=== PATIENT | male | born 1980 | race Caucasian/White ===

== ENCOUNTER 2020-03-02 19:30 | Emergency (ER) | payer MEDICAID ==
[~2020-03-02] VITALS: Ht 160 cm; Wt 63.6 kg
[~2020-03-02 19:30] MED LIST: DIVA-112 PO; RISP1TAB27 PO
[2020-03-02] MEDS ORDERED: DOXYCYCLINE HYCLATE 100 MG TABLET PO ONE (23:00)
[2020-03-02] MEDS ORDERED: IBUPROFEN 600 MG TABLET PO ONE (23:00)
[2020-03-02] MEDS ORDERED: ACETAMINOPHEN 500 MG TABLET PO ONE (23:00)
[2020-03-02 23:10] VITALS: BP 135/88
== END 2020-03-03 | disposition home or self-care (01) ==
LOC: EMS 19:30
DX: L03.113 Cellulitis of right upper limb (principal); F31.9 Bipolar disorder, unspecified; F20.9 Schizophrenia, unspecified; Z59.0 Homelessness; Z88.0 Allergy status to penicillin
CPT/HCPCS: Z7502; Z7610

== ENCOUNTER 2021-07-08 01:36 | Emergency (ER) | payer MEDICAID ==
[~2021-07-08 01:36] MED LIST changes: -RISP1TAB27 PO; +RISP1TAB48 PO
[2021-07-08 02:06] LABS: GLUCOSE,POINT OF CARE 100 MG/DL (70-110)
[2021-07-08 02:06] LABS: BASOPHILS % (AUTO) 0.8 % (0.0-2.0); EOSINOPHILS % (AUTO) 6.6 % (1.0-6.0); HEMATOCRIT 41.6 % (41-53); HEMOGLOBIN 14.2 g/dL (13.5-17.5); LYMPHOCYTES # (AUTO) 2.4 K/uL (1.0-4.8); LYMPHOCYTES % (AUTO) 26.7 % (22.0-44.0); MEAN CORPUSCULAR HEMOGLOBIN 29.7 pg (26.0-34.0); MEAN CORPUSCULAR HGB CONC 34.2 G/dL (31.0-37.0); MEAN CORPUSCULAR VOLUME 87 fL (80-100); MONOCYTES # (AUTO) 0.8 K/uL (0.1-1.0); MONOCYTES % (AUTO) 8.6 % (2.0-9.0); NEUTROPHILS # (AUTO) 5.2 K/uL (1.8-7.7); NEUTROPHILS % (AUTO) 57.3 % (40.0-70.0); PLATELET COUNT (AUTO) 296 K/uL (150-450); RED BLOOD CELL COUNT(AUTO) 4.78 MIL/uL (4.50-5.90); RED CELL DISTRIBUTION WIDTH 13.4 % (11.5-14.5)
[2021-07-08 02:16] LABS: ANION GAP 7 mmol/L (8-16); CALCIUM, TOTAL 8.7 mg/dL (8.8-10.5); CARBON DIOXIDE 27 mmol/L (22-29); CHLORIDE 104 mmol/L (98-107); CREATININE 0.84 mg/dL (0.60-1.30); GLOMERULAR FILTR. RATE CALC > 60 mL/min (>60); GLUCOSE,RANDOM 105 mg/dL (70-110); POTASSIUM 3.4 mmol/L (3.5-5.1); SODIUM SERUM 138 mmol/L (136-145); UREA NITROGEN, BLOOD 19 mg/dL (7-18)
[2021-07-08 02:21] LABS: ALANINE AMINOTRANSFERASE 29 U/L (12-78); ALBUMIN 3.5 g/dL (3.4-5.0); ALKALINE PHOSPHATASE 66 U/L (46-116); ASPARTATE AMINOTRANSFERASE 17 U/L (15-37); BILIRUBIN,TOTAL 0.4 mg/dL (0.1-1.0); LIPASE 111 U/L (73-393); TOTAL PROTEIN, SERUM 7.4 g/dL (6.4-8.2)
== END 2021-07-08 02:53 | disposition left against medical advice (07) ==
LOC: EMS 01:37
DX: N50.89 Other specified disorders of the male genital organs (principal); F31.9 Bipolar disorder, unspecified; F20.9 Schizophrenia, unspecified; Z59.00 Homelessness unspecified; Z88.0 Allergy status to penicillin; Z79.899 Other long term (current) drug therapy
CPT/HCPCS: 80053; 82962; 83690; 85025; 99283

== ENCOUNTER 2022-06-09 06:56 | Emergency (ER) | payer MEDICAID, OTHER | END 2022-06-09 08:05 | disposition left against medical advice (07) | LOC: EMS 06:57 | DX: Z53.21 Procedure and treatment not carried out due to patient leaving prior to being seen by health care provider (principal) ==

== ENCOUNTER 2022-08-12 09:49 | Emergency (ER) | payer OTHER ==
[~2022-08-12] VITALS: Ht 162.6 cm; Wt 72.7 kg
[2022-08-12 09:57] VITALS: BP 169/107
== END 2022-08-12 11:16 | disposition left against medical advice (07) ==
LOC: EMS 09:59
DX: R10.31 Right lower quadrant pain (principal); F31.9 Bipolar disorder, unspecified; F20.9 Schizophrenia, unspecified; Z88.0 Allergy status to penicillin; Z59.00 Homelessness unspecified
CPT/HCPCS: 99281; Z7502